=== PATIENT | female | born 1995 | race African-American/Black ===

== ENCOUNTER 2016-11-12 16:44 | Emergency (ER) | payer SELFPAY ==
[~2016-11-12] VITALS: Ht 162.6 cm; Wt 80.0 kg
[2016-11-12 17:43] LABS: HEMOGLOBIN 8.8 g/dl (12.0-16.0); IMMATURE GRANULOCYTES 0.3 % (0.0-1.0); MEAN CELL VOLUME 76.7 fL CALC (80.0-100.0); MEAN CORPUSCULAR HGB 24.1 pG CALC (26.0-32.0); MEAN CORPUSCULAR HGB CONC 31.4 g/L CALC (32.0-36.0); NEUT# 3.36 thou/uL (2.00-7.15); RED BLOOD COUNT 3.65 mill/uL (4.20-5.60); RED CELL DISTRI WIDTH 13.8 % (11.5-15.5)
[2016-11-12 17:56] LABS: ALKALINE PHOSPHATASE 74 u/l (38-126); ANION GAP 13 (6-22 (CALC)); BILIRUBIN, TOTAL 0.2 mg/dL (0.0-1.4); BUN 13 mg/dL (7-17); BUN/CREATININE RATIO 15 (12-20 (CALC)); CALCIUM 8.9 mg/dL (8.4-10.2); CARBON DIOXIDE 26 mmol/l (22-30); CHLORIDE 105 mmol/l (95-108); CREATININE 0.9 mg/dL (0.5-1.0); GFR > 60 ML/MIN (>=60 (CALC)); GFR FOR AFR.AMER. > 60 ML/MIN (>=60 (CALC)); GLUCOSE 94 mg/dL (65-105); POTASSIUM 3.9 mmol/l (3.5-5.1); SGOT/AST 20 u/l (14-36); SGPT/ALT 21 u/l (9-52); SODIUM 140 mmol/l (137-146); TOTAL PROTEIN 7.5 g/dL (6.3-8.2)
[2016-11-12] MEDS ORDERED: PROVERA10 MG PO (18:11)
[2016-11-12 20:15] VITALS: BP 112/68
== END 2016-11-12 20:17 | disposition home or self-care (01) | DRG 761 ==
LOC: ED 16:44
PROVIDERS: Emergency Medicine
DX: N93.8 Other specified abnormal uterine and vaginal bleeding (principal)

== ENCOUNTER 2017-03-30 22:34 | Emergency (ER) | payer SELFPAY ==
[~2017-03-30] VITALS: Ht 162.6 cm; Wt 61.6 kg
[~2017-03-30 22:34] MED LIST: PROVERA10 MG PO
[2017-03-30 23:48] VITALS: BP 107/72
[2017-03-30] MEDS ORDERED: FIORICET PO (23:50)
== END 2017-03-30 23:48 | disposition home or self-care (01) | DRG 103 ==
LOC: ED 22:34
DX: R51 Headache (principal)

== ENCOUNTER 2017-04-14 20:19 | Emergency (ER) | payer SELFPAY ==
[~2017-04-14] VITALS: Ht 162.6 cm; Wt 56.0 kg
[~2017-04-14 20:19] MED LIST changes: +FIORICET PO
[2017-04-14 20:39] LABS: HEMATOCRIT 32.2 % (37.0-47.0); HEMOGLOBIN 9.5 g/dl (12.0-16.0); IMMATURE GRANULOCYTES 0.2 % (0.0-1.0); MEAN CELL VOLUME 64.9 fL CALC (80.0-100.0); MEAN CORPUSCULAR HGB 19.2 pG CALC (26.0-32.0); MEAN CORPUSCULAR HGB CONC 29.5 g/L CALC (32.0-36.0); NEUT# 5.13 thou/uL (2.00-7.15); RED BLOOD COUNT 4.96 mill/uL (4.20-5.60); RED CELL DISTRI WIDTH 22.2 % (11.5-15.5)
[2017-04-14 20:53] LABS: ALBUMIN 4.6 g/dL (3.2-5.0); ALKALINE PHOSPHATASE 77 u/l (38-126); ANION GAP 17 (6-22 (CALC)); BILIRUBIN, TOTAL 0.5 mg/dL (0.0-1.4); BUN 14 mg/dL (7-17); BUN/CREATININE RATIO 16 (12-20 (CALC)); CALCIUM 9.4 mg/dL (8.4-10.2); CARBON DIOXIDE 17 mmol/l (22-30); CHLORIDE 110 mmol/l (95-108); CREATININE 0.8 mg/dL (0.5-1.0); GFR > 60 ML/MIN (>=60 (CALC)); GFR FOR AFR.AMER. > 60 ML/MIN (>=60 (CALC)); GLUCOSE 84 mg/dL (65-105); LIPASE 131 u/l (23-300); POTASSIUM 3.9 mmol/l (3.5-5.1); SGOT/AST 21 u/l (14-36); SGPT/ALT 27 u/l (9-52); SODIUM 141 mmol/l (137-146); TOTAL PROTEIN 8.4 g/dL (6.3-8.2)
[2017-04-14 20:57] LABS: PROTHROMBIN TIME 11.4 SECONDS (9.0-12.5)
[2017-04-14 21:00] LABS: ETHYL ALCOHOL 0 mg/dl (0-30)
[2017-04-14 21:01] LABS: MYOGLOBIN 12 ng/mL (0 - 62)
[2017-04-14 21:26] LABS: URINE BILIRUBIN - DIPSTICK NEGATIVE (NEGATIVE); URINE BLOOD DIPSTICK NEGATIVE (NEGATIVE); URINE CLARITY SLIGHT CLOUDY; URINE COLOR YELLOW; URINE GLUCOSE - DIPSTICK NEGATIVE (NEGATIVE); URINE KETONE 15 mg/dL (NEGATIVE); URINE NITRITE - DIPSTICK NEGATIVE (Negative); URINE PH 6.5 (4.5-8.0); URINE PROTEIN - DIPSTICK NEGATIVE (NEG-TRACE); URINE SPECIFIC GRAVITY 1.025
[2017-04-14 21:29] LABS: URINE LEUK ESTERASE SMALL (NEGATIVE)
[2017-04-14 21:30] LABS: BARBITURATES NEGATIVE (NEGATIVE); COCAINE NEGATIVE (NEGATIVE); METHADONE NEGATIVE (NEGATIVE); OXCYCODONE NEGATIVE (NEGATIVE); TETRAHYDROCANNABIONOL NEGATIVE (NEGATIVE); TRICYLIC ANTIDEPRESSANTS NEGATIVE (NEGATIVE)
[2017-04-14 21:37] LABS: URINE AMORPH SEDIMENT MODERATE hpf (NONE-FEW); URINE SQUAMOUS EPITHELIAL CELL MODERATE EPI/hpf (0-FEW)
[2017-04-14] MEDS ORDERED: CEPHALEXIN500 MG PO (22:38)
[2017-04-14 22:48] VITALS: BP 101/57
== END 2017-04-14 22:48 | disposition home or self-care (01) | DRG 690 ==
LOC: ED 20:19
PROVIDERS: Emergency Medicine
DX: N39.0 Urinary tract infection, site not specified (principal); R50.9 Fever, unspecified

== ENCOUNTER 2017-07-30 11:54 | Emergency (ER) | payer SELFPAY ==
[~2017-07-30] VITALS: Ht 162.6 cm; Wt 68.0 kg
[~2017-07-30 11:54] MED LIST changes: +CEPHALEXIN500 MG PO
[2017-07-30 15:32] LABS: HEMATOCRIT 36.5 % (37.0-47.0); HEMOGLOBIN 10.9 g/dl (12.0-16.0); IMMATURE GRANULOCYTES 0.3 % (0.0-1.0); MEAN CELL VOLUME 68.5 fL CALC (80.0-100.0); MEAN CORPUSCULAR HGB 20.5 pG CALC (26.0-32.0); MEAN CORPUSCULAR HGB CONC 29.9 g/L CALC (32.0-36.0); NEUT# 4.27 thou/uL (2.00-7.15); RED BLOOD COUNT 5.33 mill/uL (4.20-5.60); RED CELL DISTRI WIDTH 21.1 % (11.5-15.5)
[2017-07-30 16:01] LABS: ALBUMIN 4.6 g/dL (3.2-5.0); ALKALINE PHOSPHATASE 81 u/l (38-126); ANION GAP 20 (6-22 (CALC)); BILIRUBIN, TOTAL 0.5 mg/dL (0.0-1.4); BUN 5 mg/dL (7-17); BUN/CREATININE RATIO 6 (12-20 (CALC)); CALCIUM 9.3 mg/dL (8.4-10.2); CARBON DIOXIDE 17 mmol/l (22-30); CHLORIDE 108 mmol/l (95-108); CREATININE 0.9 mg/dL (0.5-1.0); GFR > 60 ML/MIN (>=60 (CALC)); GFR FOR AFR.AMER. > 60 ML/MIN (>=60 (CALC)); GLUCOSE 93 mg/dL (65-105); POTASSIUM 3.2 mmol/l (3.5-5.1); SGOT/AST 23 u/l (14-36); SGPT/ALT 25 u/l (9-52); SODIUM 143 mmol/l (137-146); TOTAL PROTEIN 8.3 g/dL (6.3-8.2)
[2017-07-30] MEDS ORDERED: ZITHROMAX250 MG PO (16:23)
[2017-07-30] MEDS ORDERED: PROVENTIL HFA IN (16:23)
[2017-07-30 16:37] VITALS: BP 114/60
== END 2017-07-30 16:35 | disposition home or self-care (01) | DRG 153 ==
LOC: ED 11:54
PROVIDERS: Emergency Medicine
DX: J06.9 Acute upper respiratory infection, unspecified (principal); R05 Cough; R50.9 Fever, unspecified

== ENCOUNTER 2017-12-31 22:53 | Emergency (ER) | payer SELFPAY ==
[~2017-12-31] VITALS: Ht 162.6 cm; Wt 63.4 kg
[~2017-12-31 22:53] MED LIST changes: +PROVENTIL HFA IN; +ZITHROMAX250 MG PO
[2017-12-31 23:58] LABS: HEMATOCRIT 36.6 % (37.0-47.0); HEMOGLOBIN 11.4 g/dl (12.0-16.0); IMMATURE GRANULOCYTES 0.3 % (0.0-1.0); MEAN CORPUSCULAR HGB 23.4 pG CALC (26.0-32.0); MEAN CORPUSCULAR HGB CONC 31.1 g/L CALC (32.0-36.0); NEUT# 3.44 thou/uL (2.00-7.15); RED BLOOD COUNT 4.88 mill/uL (4.20-5.60); RED CELL DISTRI WIDTH 16.1 % (11.5-15.5)
[2017-12-31 23:59] LABS: URINE BILIRUBIN - DIPSTICK NEGATIVE (NEGATIVE); URINE BLOOD DIPSTICK NEGATIVE (NEGATIVE); URINE COLOR YELLOW; URINE GLUCOSE - DIPSTICK NEGATIVE (NEGATIVE); URINE KETONE NEGATIVE (NEGATIVE); URINE LEUK ESTERASE NEGATIVE (NEGATIVE); URINE NITRITE - DIPSTICK NEGATIVE (Negative); URINE PROTEIN - DIPSTICK NEGATIVE (NEG-TRACE); URINE UROBILINOGEN - DIPSTICK 0.2 E.U./dL (0.2)
[2018-01-01] LABS: URINE CLARITY SL CLOUDY
[2018-01-01 00:09] LABS: ALBUMIN 3.9 g/dL (3.2-5.0); ALKALINE PHOSPHATASE 78 u/l (38-126); AMYLASE 66 u/l (30-110); ANION GAP 14 (6-22 (CALC)); BILIRUBIN, TOTAL 0.4 mg/dL (0.0-1.4); BUN 12 mg/dL (7-17); BUN/CREATININE RATIO 14 (12-20 (CALC)); CHLORIDE 105 mmol/l (95-108); CREATININE 0.8 mg/dL (0.5-1.0); GFR > 60 ML/MIN (>=60 (CALC)); GFR FOR AFR.AMER. > 60 ML/MIN (>=60 (CALC)); LIPASE 216 u/l (23-300); SGOT/AST 26 u/l (14-36); SGPT/ALT 26 u/l (9-52); SODIUM 141 mmol/l (137-146); TOTAL PROTEIN 7.7 g/dL (6.3-8.2)
[2018-01-01 00:10] LABS: CARBON DIOXIDE 26 mmol/l (22-30); POTASSIUM 4.4 mmol/l (3.5-5.1)
[2018-01-01] MEDS ORDERED: PREVACID30 M3 PO (00:33)
[2018-01-01 00:59] VITALS: BP 114/72
[2018-01-01] MEDS ORDERED: MIRALAX3350 N1 PO (04:23)
== END 2018-01-01 01:05 | disposition home or self-care (01) | DRG 392 ==
LOC: ED 22:53
PROVIDERS: Emergency Medicine
DX: K29.70 Gastritis, unspecified, without bleeding (principal); K59.00 Constipation, unspecified

== ENCOUNTER 2019-05-14 13:31 | Emergency (ER) | payer SELFPAY ==
[~2019-05-14] VITALS: Ht 162.6 cm; Wt 68.2 kg
[~2019-05-14 13:31] MED LIST changes: +MIRALAX3350 N1 PO; +PREVACID30 M3 PO
[2019-05-14 14:29] VITALS: BP 111/74
== END 2019-05-14 14:31 | disposition home or self-care (01) | DRG 605 ==
LOC: ED 13:31
DX: S80.02XA Contusion of left knee, initial encounter (principal); V03.00XA Pedestrian on foot injured in collision with car, pick-up truck or van in nontraffic accident, initial encounter

== ENCOUNTER 2019-09-01 08:41 | Emergency (ER) | payer SELFPAY ==
[2019-09-01] MEDS ORDERED: CYCLOBENZAPR5 MG PO (09:51)
[2019-09-01 09:57] VITALS: BP 118/60
== END 2019-09-01 10:04 | disposition home or self-care (01) | DRG 556 ==
LOC: ED 08:41
DX: M25.511 Pain in right shoulder (principal)

== ENCOUNTER 2020-11-03 19:21 | Emergency (ER) | payer BC ==
[~2020-11-03] VITALS: Ht 162.6 cm; Wt 81.0 kg
[~2020-11-03 19:21] MED LIST changes: +CYCLOBENZAPR5 MG PO
[2020-11-03 21:06] VITALS: BP 134/73
== END 2020-11-03 21:06 | disposition home or self-care (01) | DRG 179 ==
LOC: ED 19:21
DX: U07.1 COVID-19 (principal)

== ENCOUNTER 2021-01-20 01:12 | Emergency (ER) | payer BC ==
[~2021-01-20] VITALS: Ht 162.6 cm; Wt 70.0 kg
[2021-01-20 01:48] LABS: ALBUMIN 4.1 g/dL (3.2-5.0); ALKALINE PHOSPHATASE 79 u/l (38-126); ANION GAP 14 (6-22 (CALC)); BUN 4 mg/dL (7-17); BUN/CREATININE RATIO 5 (12-20 (CALC)); CARBON DIOXIDE 23 mmol/l (22-30); CHLORIDE 104 mmol/l (95-108); CREATININE 0.8 mg/dL (0.5-1.0); ETHYL ALCOHOL 201 mg/dl (0-30); GFR > 60 ML/MIN (>=60 (CALC)); GFR FOR AFR.AMER. > 60 ML/MIN (>=60 (CALC)); POTASSIUM 3.6 mmol/l (3.5-5.1); SGOT/AST 22 u/l (14-36); SODIUM 137 mmol/l (137-146); TOTAL PROTEIN 7.6 g/dL (6.3-8.2)
[2021-01-20 01:53] LABS: BILIRUBIN, TOTAL 0.1 mg/dL (0.0-1.4)
[2021-01-20 01:54] LABS: INTERNATIONAL NORMALIZED RATIO 1.1 RATIO (0.7-1.3); PROTHROMBIN TIME 11.3 SECONDS (9.0-12.5)
[2021-01-20 01:59] LABS: HEMATOCRIT 39.4 % (37.0-47.0); HEMOGLOBIN 12.2 g/dl (12.0-16.0); IMMATURE GRANULOCYTES 0.2 % (0.0-5.0); MEAN CORPUSCULAR HGB 24.7 pG CALC (26.0-32.0); NEUT# 5.36 thou/uL (2.00-7.15); RED BLOOD COUNT 4.93 mill/uL (4.20-5.60)
[2021-01-20 02:04] LABS: MEAN CELL VOLUME 79.9 fL CALC (80.0-100.0)
[2021-01-20 05:37] LABS: URINE BILIRUBIN - DIPSTICK NEGATIVE (NEGATIVE); URINE BLOOD DIPSTICK NEGATIVE (NEGATIVE); URINE COLOR YELLOW; URINE GLUCOSE - DIPSTICK NEGATIVE (NEGATIVE); URINE KETONE NEGATIVE (NEGATIVE); URINE LEUK ESTERASE NEGATIVE (NEGATIVE); URINE PH 5.5 (4.5-8.0); URINE PROTEIN - DIPSTICK NEGATIVE (NEG-TRACE); URINE SPECIFIC GRAVITY <=1.005; URINE UROBILINOGEN - DIPSTICK 0.2 E.U./dL (0.2)
[2021-01-20 05:45] LABS: URINE NITRITE - DIPSTICK NEGATIVE (Negative)
[2021-01-20 08:10] VITALS: BP 103/64
== END 2021-01-20 08:35 | disposition home or self-care (01) | DRG 897 ==
LOC: ED 01:12
PROVIDERS: Emergency Medicine
DX: F10.129 Alcohol abuse with intoxication, unspecified (principal); Y90.6 Blood alcohol level of 120-199 mg/100 ml

== ENCOUNTER 2022-06-26 19:55 | Emergency (ER) | payer BC ==
[~2022-06-26] VITALS: Ht 162.6 cm; Wt 90.0 kg
[2022-06-26 20:35] VITALS: BP 125/89
[2022-06-26 20:45] VITALS: BP 124/88
[2022-06-26 21:00] VITALS: BP 118/85
[2022-06-26 21:15] VITALS: BP 107/83
[2022-06-26] MEDS ORDERED: VOLTAREN75 MG PO (21:25)
[2022-06-26 21:30] VITALS: BP 105/76
[2022-06-26 21:45] VITALS: BP 109/76
== END 2022-06-26 21:53 | disposition home or self-care (01) | DRG 558 ==
LOC: ED 19:55
DX: M72.2 Plantar fascial fibromatosis (principal)

== ENCOUNTER 2022-09-14 17:51 | Emergency (ER) | payer BC ==
[~2022-09-14] VITALS: Ht 162.6 cm; Wt 74.0 kg
[~2022-09-14 17:51] MED LIST changes: +VOLTAREN75 MG PO
[2022-09-14 18:10] VITALS: BP 128/84
[2022-09-14] MEDS ORDERED: MOTRIN800 MG PO (21:12)
[2022-09-14] MEDS ORDERED: TUSSI-PRE2 PO (21:12)
== END 2022-09-14 22:00 | disposition home or self-care (01) | DRG 179 ==
LOC: ED 17:51
DX: U07.1 COVID-19 (principal); R00.0 Tachycardia, unspecified; R05.9 Cough, unspecified

== ENCOUNTER 2023-01-03 22:03 | Emergency (ER) | payer BC ==
[~2023-01-03] VITALS: Ht 160 cm; Wt 74.0 kg
[~2023-01-03 22:03] MED LIST changes: +MOTRIN800 MG PO; +TUSSI-PRE2 PO
[2023-01-03 22:20] VITALS: BP 128/87
[2023-01-03] MEDS ORDERED: TERBINAFINE250 M1 PO (22:36)
[2023-01-03 23:04] VITALS: BP 128/87
== END 2023-01-03 23:04 | disposition home or self-care (01) | DRG 607 ==
LOC: ED 22:03
DX: B35.3 Tinea pedis (principal)

== ENCOUNTER 2024-02-12 22:53 | Emergency (ER) | payer SELFPAY ==
[~2024-02-12] VITALS: Ht 160 cm; Wt 84.6 kg
[~2024-02-12 22:53] MED LIST changes: +METHOCARBAMOL500 MG PO; +NAPROXEN500 MG PO; +TERBINAFINE250 M1 PO
[2024-02-12] MEDS ORDERED: SODIUM CHLORIDE 0.9% 1,000 ML IV ONE (23:00)
[2024-02-12 23:11] LABS: BASO% 0.7 % (0-3); EOS% 1.3 % (0-8); HEMATOCRIT 37.9 % (37.0-47.0); HEMOGLOBIN 11.9 g/dl (12.0-16.0); IMMATURE GRANULOCYTES 0.1 % (0.0-5.0); MEAN CORPUSCULAR HGB 25.4 pG CALC (26.0-32.0); MEAN CORPUSCULAR HGB CONC 31.4 g/dL CAL (32.0-36.0); NEUT# 3.05 thou/uL (2.00-7.15); NEUT% 44.9 % (42-76); RED BLOOD COUNT 4.68 mill/uL (4.20-5.60); RED CELL DISTRI WIDTH 14.5 % (11.5-15.5)
[2024-02-12 23:25] LABS: ALBUMIN 3.9 g/dL (3.2-5.0); BILIRUBIN, TOTAL 0.3 mg/dL (0.02-1.3); CREATININE 1.1 mg/dL (0.5-1.0); POTASSIUM 3.9 mmol/l (3.5-5.1); TOTAL PROTEIN 7.9 g/dL (6.3-8.2)
[2024-02-13 00:24] VITALS: BP 123/80
== END 2024-02-13 00:45 | disposition home or self-care (01) | DRG 761 ==
LOC: ED 22:53
PROVIDERS: Family Medicine
DX: S31.41XA Laceration without foreign body of vagina and vulva, initial encounter (principal); X58.XXXA Exposure to other specified factors, initial encounter